=== PATIENT | female | born 1970 | race African-American/Black ===

== ENCOUNTER 2016-10-26 10:30 | Emergency (ER) | payer OTHER ==
[2016-10-26 11:34] LABS: Hematocrit 39 % (35-47); Mean Corpuscular HGB Conc 33 g/dl (31-36); Mean Corpuscular Hemoglobin 29 pg (27-31); Mean Corpuscular Volume 87 fL (80-97); Mean Platelet Volume 8 um3 (7.4-10.4); Red Blood Count 4.52 10^6/ul (4.0-5.4); Red Cell Distribution Width 13 % (10.5-15); White Blood Count 7.6 10^3/ul (3.5-10.8)
[2016-10-26 11:49] LABS: Albumin 4.2 g/dL (3.2-5.2); BUN/Creatinine Ratio 8.2 (8-20); Calcium 9.5 mg/dL (8.6-10.3); EGFR African American 93.9 (>60); Globulin 3.1 g/dL (2-4); Potassium 3.9 mmol/L (3.5-5.0); Total Bilirubin 0.5 mg/dL (0.2-1.0); Total Protein 7.3 g/dL (6.4-8.9)
--- NOTE | 2016-10-26 11:50 | RAD ---
HISTORY: Worse headache of life COMPARISONS: None TECHNIQUE: Multiple contiguous axial CT scans were obtained of the head without intravenous contrast. FINDINGS: HEMORRHAGE/INFARCT: There is no hemorrhage or acute infarct. MASSES/SHIFT: There is no mass or shift. EXTRA-AXIAL SPACES: There are no extra-axial fluid collections. SULCI AND VENTRICLES: The sulci and ventricles are normal in size and position for the patient's stated age. CEREBRUM: There are no focal parenchymal abnormalities. BRAINSTEM: There are no focal parenchymal abnormalities. CEREBELLUM: There are no focal parenchymal abnormalities. VESSELS: The vessels are grossly normal. PARANASAL SINUSES: The paranasal sinuses are clear. ORBITS: The orbits are unremarkable. BONES AND SOFT TISSUE: No bone or soft tissue abnormalities are noted. OTHER: None IMPRESSION: NO ACUTE INTRACRANIAL PATHOLOGY.
[2016-10-26 12:25] VITALS: BP 132/76
--- NOTE | 2016-10-26 12:38 | ED ---
Headache - HPI Summary HPI Summary: Patient is an otherwise healthy 45yo F who presents to ED with intermittent COLEY x 1 week. Hx of migraines as a teenager, but denies symptoms since that time. Headache is supraorbital, preorbital and occipital and stabbing in nature. Pain currently a 5/10, but yesterday a 10/10 and "worst of life." Denies photophobia, but endorses phonophobia. Denies visual disturbances. Denies chest pain, pressure, SOB, neck pain or extremity weakness. Pain is worse in the morning and better with Ibuprofen. Denies significant health history. Endorses pre-eclampsia and gestational diabetes during , but denies any issues post-. Family hx positive for CAD , CO, Diabetes. Denies family history of SAH or cerebral aneurysm. Denies auras, flashers, floaters, excessive tearing or nasal drainage with COLEY. She states she recently stopped taking her Chantix which she had been on for several months. She attempted to smoke a few times, but failed d/t feeling ill with cigarettes. Last chantix was taken approx 2 weeks ago. Denies other medication changes. - History Of Current Complaint Chief Complaint: EDHeadache Stated Complaint: HEADACHE Time Seen by Provider: 10/26/16 10:53 Hx Obtained From: Patient Onset/Duration: Sudden Onset Initially Headache Was: "Worst Headache Ever", Initial Pain Scale(0-10)= - 10 Currently Pain Is: Current Pain Scale(0-10)= - 5 Timing: Intermittent, Lasting: - hours Character: Sharp, Throbbing Location of Headache: Occipital, Other: - orbital Aggravating Factor: Position Change, Other - sound Allevating Factors: Medication - advil Associated Signs And Symptoms: Negative - Risk Factors SAH Risk Factors: -Liberian, Hypertension Meningitis Risk Factors: Negative SDH Risk Factors: Negative Temporal Arteritis Risk Factors: Female - Allergies/Home Medications Allergies/Adverse Reactions: Allergies Allergy/AdvReac Type Severity Reaction Status Date / Time No Known Allergies Allergy Verified 10/26/16 12:11 PMH/Surg Hx/FS Hx/Imm Hx Previously Healthy: Yes - Surgical History Surgery Procedure, Year, and Place: csection, leg surgery as child - Immunization History Hx Pertussis Vaccination: No Immunizations Up to Date: Unable to Obtain/Confirm Infectious Disease History: No Infectious Disease History: Denies: Traveled Outside the [place] in Last 30 Days - Social History Occupation: Employed Full-time Lives: With Family Alcohol Use: None Alcohol Amount: quit one month ago Hx Substance Use: Yes Substance Use Type: Reports: Marijuana Hx Tobacco Use: No Smoking Status (MU): Former Smoker Type: Cigarettes Review of Systems Constitutional: Negative Positive: Other - phonophobia Respiratory: Negative Positive: no symptoms reported, see HPI Musculoskeletal: Negative Positive: Headache, Weakness Psychological: Normal All Other Systems Reviewed And Are Negative: Yes Physical Exam Triage Information Reviewed: Yes Vital Signs On Initial Exam: Initial Vitals Temp Pulse Resp BP Pulse Ox 97.5 F 68 18 136/76 100 10/26/16 10:32 10/26/16 10:32 10/26/16 10:32 10/26/16 10:32 10/26/16 10:32 Vital Signs Reviewed: Yes Appearance: Positive: Well-Appearing, Well-Nourished Skin: Positive: Warm, Skin Color Reflects Adequate Perfusion Head/Face: Positive: Normal Head/Face Inspection Eyes: Positive: EOMI, VITALIY, Conjunctiva Clear Neck: Positive: Supple, Nontender, No Lymphadenopathy Respiratory/Lung Sounds: Positive: Clear to Auscultation, Breath Sounds Present Cardiovascular: Positive: Normal, RRR, Pulses are Symmetrical in both Upper and Lower Extremities Abdomen Description: Positive: Nontender Musculoskeletal: Positive: Normal, Strength/ROM Intact Neurological: Positive: Sensory/Motor Intact, Alert, Oriented to Person Place, Time, Speech Normal Psychiatric: Positive: Affect/Mood Appropriate AVPU Assessment: Alert - [place] Coma Scale Best Eye Response: 4 - Spontaneous Best Motor Response: 6 - Obeys Commands Best Verbal Response: 5 - Oriented Coma Scale Total: 15 Diagnostics - Vital Signs Vital Signs Temp Pulse Resp BP Pulse Ox 10/26/16 12:24 97.5 F 72 15 132/76 10/26/16 12:00 73 15 97 10/26/16 11:19 145/82 10/26/16 11:17 65 97 10/26/16 11:00 64 97 10/26/16 10:59 129/76 10/26/16 10:57 62 119/67 96 10/26/16 10:44 63 130/71 98 10/26/16 10:32 97.5 F 68 18 136/76 100 - Laboratory Lab Results: Lab Results 10/26/16 10/26/16 Range/Units 11:25 11:25 WBC 7.6 (3.5-10.8) 10^3/ul RBC 4.52 (4.0-5.4) 10^6/ul Hgb 13.0 (12.0-16.0) g/dl Hct 39 (35-47) % MCV 87 (80-97) fL MCH 29 (27-31) pg MCHC 33 (31-36) g/dl RDW 13 (10.5-15) % Plt Count 186 (150-450) 10^3/ul MPV 8 (7.4-10.4) um3 Neut % (Auto) 64.5 (38-83) % Lymph % (Auto) 26.0 (25-47) % [place] % (Auto) 7.5 (1-9) % Eos % (Auto) 1.5 (0-6) % Baso % (Auto) 0.5 (0-2) % Absolute Neuts (auto) 4.9 (1.5-7.7) 10^3/ul Absolute Lymphs (auto) 2.0 (1.0-4.8) 10^3/ul Absolute Monos (auto) 0.6 (0-0.8) 10^3/ul Absolute Eos (auto) 0.1 (0-0.6) 10^3/ul Absolute Basos (auto) 0 (0-0.2) 10^3/ul Absolute Nucleated RBC 0 10^3/ul Nucleated RBC % 0.1 ESR Pending Sodium 138 (133-145) mmol/L Potassium 3.9 (3.5-5.0) mmol/L Chloride 108 (101-111) mmol/L Carbon Dioxide 23 (22-32) mmol/L Anion Gap 7 (2-11) mmol/L BUN 7 (6-24) mg/dL Creatinine 0.85 (0.51-0.95) mg/dL Est GFR ( Amer) 93.9 (>60) Est GFR (Non-Af Amer) 73.0 (>60) BUN/Creatinine Ratio 8.2 (8-20) Glucose 104 H (70-100) mg/dL Calcium 9.5 (8.6-10.3) mg/dL Total Bilirubin 0.50 (0.2-1.0) mg/dL AST 12 L (13-39) U/L ALT 6 L (7-52) U/L Alkaline Phosphatase 41 (34-104) U/L Total Protein 7.3 (6.4-8.9) g/dL Albumin 4.2 (3.2-5.2) g/dL Globulin 3.1 (2-4) g/dL Albumin/Globulin Ratio 1.4 (1-3) Result Diagrams: 10/26/16 11:25 10/26/16 11:25 Lab Statement: Any lab studies that have been ordered have been reviewed, and results considered in the medical decision making process. Headache Course/Dx - Course Course Of Treatment: Patient sent to CT brain for "worst COLEY of life," although current pain scale is 5/10. Pain is intermittent, located orbitally and occipitally. Denies neck pain, tearing of the eyes, auras or other visual disturbances. Positive for phonophobia. Risk factors include AA, family history of CAD, CO and diabetes. Denies hx of migraines. CT negative. Labs OK. Likely d/t abrupt cessation of Chantix medication and nicotine cravings. Patient will follow up with Dr. Bazan if symptoms continue. EKG OK. Sumatriptan rx at first onset of COLEY. - Diagnoses Differential Diagnosis/HQI/PQRI: Migraine, Sinus Headache, Subarachnoid Hemorrhage, Tension Headache Provider Diagnoses: Headache, acute Discharge - Discharge Plan Condition: Stable Disposition: HOME Prescriptions: SUMAtriptan TAB* [Imitrex TAB*] 50 mg PO SEE INSTRUCTIONS #30 tab MDD 4 Patient Education Materials: Acute Headache (ED) Referrals: Gilberto Serrano MD [Primary Care Provider] - Gilberto Bazan MD [Medical Doctor] - Additional Instructions: Follow up with Dr. Bazan if symptoms do not resolve. Lab work and CT all normal today. Do not smoke or continue taking chantix at this time until you talk to your dr. For any worsening symptoms, of symptoms not improved after take sumatriptan, return to ED.
[2016-10-26 12:50] LABS: Erythrocyte Sed Rate 43 mm/Hr (0-14)
== END 2016-10-26 12:24 | disposition home or self-care (01) ==
LOC: ED 10:30
DX: R51 Headache (principal); R53.1 Weakness; H53.149 Visual discomfort, unspecified; Z87.891 Personal history of nicotine dependence
CPT/HCPCS: 36415; 70450; 80053; 85025; 85652; 93005; 99282

== ENCOUNTER 2016-11-02 16:20 | Emergency (ER) | payer OTHER ==
[2016-11-02 16:25] VITALS: BP 126/69
[2016-11-02] MEDS ORDERED: Ketorolac INJ* 60 MG/2 ML VIAL IM ONE (16:51)
--- NOTE | 2016-11-02 18:10 | ED ---
Tammy Smith Alok, scribed for Homer Hernandez MD on 11/02/16 at 1656 . Headache - HPI Summary HPI Summary: 45F presents to the ED with an intermittent COLEY for the past couple of days. Pt states that her headache is described as a throbbing, and located at the frontal while wrapping around the temporal bilaterally. Pt was here one week ago for the same symptoms and had head CT done. Pt was discharged home with a rx for Sumatriptan and pt c/o medication is causing her hearing loss. Pt took Excedrin migraine to help her COLEY which helps it temporarily. Pt states her COLEY is worse during sun exposure as well as when bending forward. Pt states her COLEY is especially bad in the morning. Pt denies numbness, weakness, difficulty ambulating, or post nasal drip. LMP unknown as pt is on the depo shot and does not get menstrual periods. - History Of Current Complaint Chief Complaint: EDHeadache Stated Complaint: HEADACHES Time Seen by Provider: 11/02/16 16:27 Hx Obtained From: Patient Onset/Duration: Started days ago, Still Present Initially Headache Was: Moderate Currently Pain Is: Moderate Timing: Intermittent, Lasting: Character: Throbbing Location of Headache: Frontal, Temporal Aggravating Factor: Other - bending forward, sun exposure Allevating Factors: Medication - Excedrin Migraine - Allergies/Home Medications Allergies/Adverse Reactions: Allergies Allergy/AdvReac Type Severity Reaction Status Date / Time No Known Allergies Allergy Verified 10/26/16 12:11 PMH/Surg Hx/FS Hx/Imm Hx - Surgical History Surgery Procedure, Year, and Place: csection, leg surgery as child Infectious Disease History: No Infectious Disease History: Denies: Traveled Outside the [place] in Last 30 Days - Family History Known Family History: Positive: Other - Yes- Breast CA - Social History Occupation: Employed Full-time Lives: With Family Alcohol Use: None Alcohol Amount: quit one month ago Hx Substance Use: Yes Substance Use Type: Reports: Marijuana Hx Tobacco Use: No Smoking Status (MU): Former Smoker Type: Cigarettes Review of Systems Negative: Fever Negative: Nasal Discharge Positive: Headache. Negative: Weakness, Numbness All Other Systems Reviewed And Are Negative: Yes Physical Exam - Summary Physical Exam Summary: VITAL SIGNS: Reviewed. GENERAL: Patient is a well-developed and nourished female who is lying comfortable in the stretcher. Patient is not in any acute respiratory distress. HEAD AND FACE: No signs of trauma. No ecchymosis, hematomas or skull depressions. No sinus tenderness. EYES: PERRLA, EOMI x 2, No injected conjunctiva, no nystagmus. No photophobia. EARS: Hearing grossly intact. Ear canals and tympanic membranes are within normal limits. MOUTH: Oropharynx within normal limits. NECK: Supple, trachea is midline, no adenopathy, no JVD, no carotid bruit, no c- spine tenderness, neck with full ROM. No meningeal signs, no Kernig's or brudzinskis signs. CHEST: Symmetric, no tenderness at palpation LUNGS: Clear to auscultation bilaterally. No wheezing or crackles. CVS: Regular rate and rhythm, S1 and S2 present, no murmurs or gallops appreciated. ABDOMEN: Soft, non-tender. No signs of distention. No rebound no guarding, and no masses palpated. Bowel sounds are normal. EXTREMITIES: FROM in all major joints, no edema, no cyanosis or clubbing. NEURO: Alert and oriented x 3. No acute neurological deficits. Speech is normal and follows commands. SKIN: Dry and warm Triage Information Reviewed: Yes Vital Signs On Initial Exam: Initial Vitals Temp Pulse Resp BP Pulse Ox 98.4 F 77 20 126/69 100 11/02/16 16:23 11/02/16 16:23 11/02/16 16:23 11/02/16 16:23 11/02/16 16:23 Vital Signs Reviewed: Yes Diagnostics - Vital Signs Vital Signs Temp Pulse Resp BP Pulse Ox 11/02/16 16:23 98.4 F 77 20 126/69 100 - Laboratory Lab Statement: Any lab studies that have been ordered have been reviewed, and results considered in the medical decision making process. Headache Course/Dx - Course Course Of Treatment: 45F presents to the ED with an ongoing COLEY for the past couple of days. Pt states that her headache is constant, described as a throbbing, and located at the frontal while wrapping around the temporal bilaterally. Pt was here one week ago for the same symptoms and had head CT done. Pt was discharged home with a rx for Sumatriptan and pt c/o medication is causing her hearing loss. Pt took Excedrin migraine to help her COLEY which helps it temporarily. Pt states her COLEY is worse during sun exposure as well as when bending forward. Pt denies numbness, weakness, difficulty ambulating, or post nasal drip. LMP unknown as pt is on the depo shot and does not get menstrual periods. Pt c/o intermitten COLEY worse in the morning. CT done on 10/26/16 shows negative for acute pathology. I believe pt has a tension COLEY. Pt reports stress in her life. Pt was given Toradol and is now asymtomatic. Will discharge pt home with recomendation to FU with PCP and rx for Neproxin. - Diagnoses Differential Diagnosis/HQI/PQRI: Migraine, Sinus Headache, Tension Headache Provider Diagnoses: Headache Discharge - Discharge Plan Condition: Stable Disposition: HOME Prescriptions: Naproxen TAB* [Naprosyn 250 mg TAB*] 500 mg PO Q8H PRN #30 tab PRN Reason: Pain Patient Education Materials: Acute Headache (ED) Referrals: Gilberto Serrano MD [Primary Care Provider] - The documentation as recorded by the Tammy morillo Alok accurately reflects the service I personally performed and the decisions made by me, Homer Hernandez MD.
== END 2016-11-02 17:06 | disposition home or self-care (01) ==
LOC: ED 16:20
DX: R51 Headache (principal); Z87.891 Personal history of nicotine dependence
CPT/HCPCS: 96372; 99281; J1885

== ENCOUNTER → 2016-11-03 11:30 | Emergency (ER) | payer OTHER ==
[2016-11-03 11:40] VITALS: BP 125/76
== END | disposition left against medical advice (07) ==
LOC: ED 11:30
DX: R51 Headache (principal); Z53.21 Procedure and treatment not carried out due to patient leaving prior to being seen by health care provider